=== PATIENT | male | born 1975 | race Caucasian/White ===

== ENCOUNTER 2016-12-06 00:12 | Emergency (ER) | payer SELFPAY ==
[2016-12-06 00:57] LABS: MEAN CORPUSCULAR HEMOGLOBIN 32.9 pg (27.0-33.0); MEAN CORPUSCULAR HGB CONC 34.5 g/dl (32.0-36.5); MEAN CORPUSCULAR VOLUME 95.3 fl (80.0-96.0); RED CELL DISTRIBUTION WIDTH 13.4 % (11.5-14.5); WHITE BLOOD COUNT 5.3 K/mm3 (4.0-10.0)
[2016-12-06 01:09] LABS: ALBUMIN 3.8 GM/DL (3.2-5.2); ALBUMIN/GLOBULIN RATIO 1.06 (1.00-1.93); ALKALINE PHOSPHATASE 81 U/L (45-117); ALT/SGPT 62 U/L (12-78); ANION GAP 10 MEQ/L (8-16); AST/SGOT 63 U/L (15-37); BILIRUBIN,DIRECT 0.2 MG/DL (0.0-0.2); BILIRUBIN,TOTAL 0.6 MG/DL (0.2-1.0); BLOOD UREA NITROGEN 3 MG/DL (7-18); CALCIUM LEVEL 8.4 MG/DL (8.5-10.1); CARBON DIOXIDE LEVEL 27 MEQ/L (21-32); CHLORIDE LEVEL 106 MEQ/L (98-107); CREATININE FOR GFR 0.82 MG/DL (0.70-1.30); GLOMERULAR FILTRATION RATE > 60.0 (>60); GLUCOSE, FASTING 81 MG/DL (70-105); POTASSIUM SERUM 3.3 MEQ/L (3.5-5.1); SODIUM LEVEL 143 MEQ/L (136-145); TOTAL PROTEIN 7.4 GM/DL (6.4-8.2)
[2016-12-06] MEDS ORDERED: ISOVUE-370 76% 100ML VIAL (Q9967) As Ordered ONE (01:31)
[2016-12-06] MEDS ORDERED: diphenhydrAMINE INJ 50MG/ML VIAL (J1200) As Ordered ONE (02:03)
[2016-12-06 02:04] LABS: AMPHETAMINES LEVEL URINE NEGATIVE (NEGATIVE); BENZODIAZEPINES URINE NEGATIVE (NEGATIVE); COCAINE METABOLITE URINE NEGATIVE (NEGATIVE); CONTROL LINE INT CTR LINE PRESENT; METHADONE URINE NEGATIVE (NEGATIVE); OPIATES URINE NEGATIVE (NEGATIVE); TRICYCLIC ANTIDEPRESS URINE NEGATIVE (NEGATIVE)
[2016-12-06] MEDS ORDERED: LORazepam 2 MG/ML VIAL (J2060) As Ordered ONE (02:04)
[2016-12-06] MEDS ORDERED: HALOPERIDOL 5 MG/ML VIAL (J1630) As Ordered ONE (02:04)
--- NOTE | 2016-12-06 03:00 | REPUSA ---
CLINICAL HISTORY: Abdominal pain. TECHNIQUE: Multiple axial, sagittal and coronal CT images were obtained through the abdomen and pelvi s after administration of intravenous contrast material. COMMENTS: The liver is mildly enlarged with decreased attenuation without mass or defect. There is no intra or extrahepatic biliary ductal dilatation. The spleen is normal. The gallbladder is within normal limits . The pancreas is of normal contour and attenuation characteristics. There is no evidence of adrenal mass. Both kidneys demonstrate prompt and equal nephrograms. The kidneys are normal in size, shape and conf iguration. There is no evidence of renal or ureteral mass. No renal or ureteral calculi are identifie d. There is no hydroureter or hydronephrosis. No evidence for appendicitis. There is no bowel wall thickening. No evidence for small or large rossy l obstruction. There is no evidence of abdominal ascites or lymphadenopathy. There is no evidence of intrinsic or extrinsic bladder mass. There is no pelvic ascites or lymphadeno opal. Diffuse thickening of the bladder. Images of the lung bases show no evidence of pleural or parenchymal mass. There are no pleural effusi ons. The bony structures are free of lytic or blastic lesions. Multilevel degenerative changes are seen in volving the thoracolumbar spine. Scattered calcifications are seen involving the aorta and major bran ches compatible with atherosclerosis. IMPRESSION: Fatty liver infiltration. Thickened bladder. Underdistention versus mild cystitis. No acute traumatic pathology. Thank you for your kind referral of this patient.
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
--- NOTE | 2016-12-06 09:27 | ECGEPIP ---
Stationary ECG Study [facility] - ED Test Date: 2016-12-06 Pat Name: SANKET HERNDON Department: Room: - Gender: M [employer]: : 1975 Requested By: NOEL Jones Order Number: [id number] Reading MD: Karen Rizo Measurements Intervals [place] Rate: 95 P: 83 NV: 157 QRS: 73 QRSD: 82 T: 66 QT: 348 QTc: 439 Interpretive Statements SINUS RHYTHM NSTTW ABNORMALITY NO PRIOR FOR COMPARISON Electronically Signed On 12-06-2016 9:27:17 EST by Karen Rizo
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
--- NOTE | 2016-12-06 10:39 | EDDOCDS ---
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 abnormalities.; The bony structures are free of lytic or blastic lesions. Multilevel degenerative changes are seen in; volving the thoracic spine. Scattered calcifications are seen involving the aorta and visualized alda; r branches compatible with atherosclerosis.; No evidence for abnormal enhancement.; IMPRESSION:; Left presternal soft tissue edema and subcutaneous fat stranding.; No evidence of acute thoracic pathology.; Thank you for your kind referral of this patient.; ; ; Outcome: 10:24 Discharge ordered by Provider. br1 10:38 Discharge Assessment: Patient awake, alert and oriented x 3. No cognitive and/or mk4 functional deficits noted. Patient verbalized understanding of disposition instructions. Patient awake and alert. patient administered narcotics - no. The following High Risk Discharge criteria are identified: None. Discharged to home ambulatory. Condition: good Condition: stable. CT Study completed. 10:38 Patient left the ED. mk4 Signatures: Dispatcher [employer] EDMS Edith Ramey, Clin Application Specialist Unit deg [place] Orour[place], Murray De Guzman, Security Aide Jelly Molina-Cee, Clin Application Specialist Unit ml3 John Odell, PHYSIOTHERAPY ASSISTANT PHYSIOTHERAPY ASSISTANT kb5 Noel Mccollum, DO mm11 Marbin Oleary MD MD br1 Nicole Kumar1 Ching Hussein,RN RN aa3 Ondina Srinivasan, RN RN mk4 Sharad,Fariba,SPINNER FRAME SPINNER FRAME ka4 Sharon Hoyos,RN Fernanda Lamar Amber, RN RN af2 Keiko Zuniga, PHYSIOTHERAPY ASSISTANT PHYSIOTHERAPY ASSISTANT cln Willy Saldana, PHYSIOTHERAPY ASSISTANT PHYSIOTHERAPY ASSISTANT jmv Corrections: (The following items were deleted from the chart) 02:24 02:17 General: pt placing blanket over face, pt asked multiple times to pull blanket mlc off of face so he is able to be visualized by staff. pt yelled "fuck this, I'm leaving" and started to attempt to get off of stretcher. pt being uncooperative with staff and yelling. Code 25 called at this time. pt manually held by staff until further helped arrived for staff and pt safety. pt able to be calmed with verbal reassurance. All physical contact by staff removed, pt cooperative. Dr. Mccollum aware. pt resting with eyes closed at this time . mlc MTDD
--- NOTE | 2016-12-08 11:39 | EDDOCDS ---
Physician Documentation [facility] Name: Heather Olivarez Age: 41 yrs Sex: Male : 1975 Arrival Date: 12/06/2016 Time: 00:12 Bed OBSERVATION Private MD: NO PRIMARY PHYSICIAN, . Disposition: 12/06/16 10:24 Discharged to Home/Self Care. Impression: Alcohol use, unspecified with intoxication, Laceration without foreign body of unspecified front wall of thorax without penetration into thoracic cavity. - Condition is Stable. - Discharge Instructions: Alcohol Intoxication, Laceration Care, Adult. - Medication Reconciliation, Local Pharmacy Hours form. - [facility]; When: 2 - 3 days; Reason: Recheck today's complaints. Follow up: [facility]; When: 1 week; Reason: Recheck today's complaints. - Problem is new. - Symptoms have improved. - Notes: You were seen in the ED for a laceration to the chest wall. CT scan showed no penetration into the thoracic cavity. Bloodwork showed alcohol intoxication. You were allowed to sober. Psychiatry was consulted who recommended that as you are having no thoughts of harming self or others you may return home to follow up with the [facility] for primary care and Behavioral Health for recheck mental health evaluation - please call to arrange to be seen. Keep the wound clean and dry with a new dressing daily.
Return to the ED for any fever, worse pain, redness around the wound, shortness of breath, discharge from the wound, depression, thoughts of harming self or any other concerns. Historical: - Allergies: Bees; onions; ibuprofen; - Home Meds: 1. none - PMHx: Asthma; - PSHx: right ear; Carpal Tunnel Repair- Left; - Social history: Smoking status: Patient uses tobacco products, current every day smoker. Patient uses alcohol on a daily basis. street drugs, marijuana, No barriers to communication noted, The patient speaks fluent [place]. - Family history: Not pertinent. - : The pt / caregiver states he / she is not on anticoagulants. Home medication list is obtained from the patient. - Exposure Risk Screening:: None identified. Vital Signs: 12/06 00:21 BP 118 / 83 (auto/); mlc 00:22 Pulse 94 MON; Pulse Ox 97% ; mlc 00:25 BP 130 / 81; Pulse 92; Resp 20; Temp 97.2(O); Pulse Ox 98% on R/A; Weight 64 kg / 141.1 jmv lbs (M); Height 5 ft. 8 in. (172.72 cm) (R); Pain 07/07; 00:30 BP 122 / 87 (auto/); mlc 00:31 Pulse 90 MON; Pulse Ox 97% ; mlc 00:45 BP 125 / 88 (auto/); mlc 00:46 Pulse 89 MON; Pulse Ox 97% ; mlc 01:00 BP 126 / 86 (auto/); mlc 01:01 Pulse 88 MON; Pulse Ox 97% ; mlc 01:15 Pulse 90 MON; Pulse Ox 97% ; mlc 01:15 BP 153 / 67 (auto/); mlc 01:30 BP 107 / 58 (auto/); mlc 01:37 Pulse 87 MON; Pulse Ox 99% ; mlc 01:45 BP 105 / 64 (auto/); mlc 01:46 Pulse 80 MON; Pulse Ox 98% ; mlc 02:00 BP 114 / 68 (auto/); mlc 02:01 Pulse 83 MON; Pulse Ox 99% ; mlc 02:15 BP 113 / 61 (auto/); mlc 02:16 Pulse 86 MON; Pulse Ox 98% ; mlc 02:30 BP 103 / 57 (auto/); mlc 02:31 Pulse 88 MON; Pulse Ox 97% ; mlc 02:56 BP 91 / 53 (auto/); mlc 02:57 Pulse 82 MON; mlc 03:00 BP 91 / 52 (auto/); mlc 03:01 Pulse 81 MON; mlc 03:15 BP 95 / 55 (auto/); mlc 03:16 Pulse 83 MON; mlc 03:30 BP 95 / 53 (auto/); mlc 03:31 Pulse 84 MON; mlc 03:45 BP 97 / 53 (auto/); mlc 03:46 Pulse 86 MON; mlc 04:00 BP 97 / 53 (auto/); mlc 04:01 Pulse 83 MON; Pulse Ox 94% ; mlc 04:15 BP 99 / 53 (auto/); mlc 04:16 Pulse 82 MON; Pulse Ox 94% ; mlc 04:30 BP 101 / 54 (auto/); mlc 04:31 Pulse 82 MON; Pulse Ox 94% ; mlc 10:36 BP 107 / 64; Pulse 72; Resp 16; Temp 97(T); Pulse Ox 97% on R/A; mk4 00:25 Body Mass Index 21.45 (64.00 kg, 172.72 cm) roseannev MDM: 00:28 Chest, 1 View Ordered. EDMS 00:30 Consult PFS/PSA/Finger Waver ordered. mm11 00:30 Consult PFS/PSA/Finger Waver: Patient's case requires discussion with on-call [facility] Psychiatrist ordered. 00:30 PSA/PFS to call Nursing Drilling Field Professional, to enter patient data on [place] if patient mm11 involuntarily admitted or transferred for SI or HI ordered. 00:30 Confirm accurate psychiatric medication list and times of last dosage ordered. mm11 00:30 Detain Pt Until Medically/PFS Cleared ordered. mm11 00:30 IV Saline Lock ordered. mm11 00:30 NS 0.9% 1000 ml IV at bolus once ordered. mm11 00:30 Controller Coal Or Ore/Pulse Ox/q 15 min VS ordered. mm11 00:30 Rhythm Strip to chart ordered. mm11 00:30 Trauma Level 2 Designation ordered. mm11 00:30 Wound Care ordered. mm11 00:30 Acetaminophen Level Ordered. EDMS 00:30 Basic Metabolic Profile Ordered. EDMS 00:30 Complete Blood Count Ordered. EDMS 00:30 Drug Eval Toxicology ED Only Ordered. EDMS 00:30 Ethyl Alcohol (ethanol) Ordered. EDMS 00:30 Liver Profile Ordered. EDMS 00:30 Salicylate Level Ordered. EDMS 00:30 Thyroid Stimulating Hormone Ordered. EDMS 00:30 Type & Screen Ordered. EDMS 00:31 ECG WITH READING ER PHYS+CARDIAG ordered. EDMS 00:31 CT ABD & PELVIS: IV Contrast Only Ordered. EDMS 00:31 CT Chest With Contrast Ordered. EDMS 01:15 Acetaminophen Level Reviewed. mm11 01:15 Basic Metabolic Profile Reviewed. mm11 01:15 Ethyl Alcohol (ethanol) Reviewed. mm11 01:15 Liver Profile Reviewed. mm11 01:15 Complete Blood Count Reviewed. mm11 01:15 Salicylate Level Reviewed. mm11 01:15 Thyroid Stimulating Hormone Reviewed. mm11 02:01 [facility] [place] into [employer] and attached to record. [facility] 02:02 Financial registration complete. [facility] 02:07 Drug Eval Toxicology ED Only Reviewed. mm11 02:07 Type & Screen Reviewed. mm11 04:19 CT ABD & PELVIS: IV Contrast Only Reviewed. mm11 04:19 CT Chest With Contrast Reviewed. mm11 05:16 REGULAR DIET PLASTIC ROMERO+DIET ordered. EDMS 09:58 Consult PFS/PSA/Finger Waver complete. ca 09:58 Consult PFS/PSA/Finger Waver: Patient's case requires discussion with on-call ca Psychiatrist complete. 09:59 PSA/PFS to call Nursing Drilling Field Professional, to enter patient data [place] if patient ca involuntarily admitted or transferred for SI or HI complete. 10:19 ED course: Accepted patient in signout. Patient with superficial laceration anterior br1 chest wall (CT negative). Patient initially reported wound was self inflicted then admitted to lying in effort to protect the individual who inflicted the wound. Pending sobriety and Psych eval. Now sober. Denies depression. Denies SI. Contracts for safety. Denies self inflicting the wound. Dr. Salas consulted of Psychiatry, recommends DC home. Patient agrees with plan.. 13:04 T-Sheet-- Draft Copy was scanned into [employer] and attached to record. gb 12/07 10:07 ECG/EKG was scanned into [employer] and attached to record. gb 10: Trend VS was scanned into [employer] and attached to record. gb 10: Radiology Report was scanned into [employer] and attached to record. gb Administered Medications: 12/06 00:45 Drug: NS 0.9% 1000 ml [sodium chloride 0.9 % intravenous solution] Route: IV; Rate: mlc bolus; Site: left antecubital; 02:23 Follow up: IV Status: Com[place] [facility] [place] 02:08 CANCELLED (Other Intervention Used): -Haloperidol Lactate 5 mg IM once mm11 02:08 CANCELLED (Other Intervention Used): LORazepam 2 mg IM once mm11 02:08 CANCELLED (Other Intervention Used): diphenhydrAMINE 50 mg IM once mm11 Signatures: Dispatcher [employer] EDMS [place] PSA PSA Ilsa Anderson, Reg Reg Ryan Hankins, DO mm11 Marbin Oleary MD MD br1 Ondina Srinivasan RN RN 4 Sharon Hoyos RN RN Fernanda Sweet [facility] The chart was reviewed and I authenticate all verbal orders and agree with the evaluation and treatment provided.Corrections: (The following items were deleted from the chart) 02: 02:02 -Haloperidol Lactate 5 mg IM once ordered. mm11 mm11 02:08 02:02 LORazepam 2 mg IM once ordered. mm11 mm11 02:08 02:02 diphenhydrAMINE 50 mg IM once ordered. mm11 mm11 02:08 02:02 Restraints, Adult: Chemical - Meds as ordered (poses imminent danger of mm11 self-harm). May use manual restraints to ensure safe admin. of meds. Pt. monitoring for min. of 2 hrs per RN policy. ordered. mm11 02: 02:02 Restraints, Adult: Mechanical - 4 points up to 1 hr (poses imminent danger of mm11 interfering with medical interventions). May use manual restraints to secure restraint devices. Pt. monitoring per RN policy. ordered. mm11 Attachments: 02:01 COUNT INCLUDES THE [facility] Payment Agreement [facility] 13:04 T-Sheet-- Draft Copy 12/07 10:07 ECG/EKG Chart Complete MTDD
--- NOTE | 2016-12-08 11:39 | EDDOCDS ---
Physician Documentation [facility] Name: Heather Olivarez Age: 41 yrs Sex: Male : 1975 Arrival Date: 12/06/2016 Time: 00:12 Bed OBSERVATION Private MD: NO PRIMARY PHYSICIAN, . Disposition: 12/06/16 10:24 Discharged to Home/Self Care. Impression: Alcohol use, unspecified with intoxication, Laceration without foreign body of unspecified front wall of thorax without penetration into thoracic cavity. - Condition is Stable. - Discharge Instructions: Alcohol Intoxication, Laceration Care, Adult. - Medication Reconciliation, Local Pharmacy Hours form. - [facility]; When: 2 - 3 days; Reason: Recheck today's complaints. Follow up: [facility]; When: 1 week; Reason: Recheck today's complaints. - Problem is new. - Symptoms have improved. - Notes: You were seen in the ED for a laceration to the chest wall. CT scan showed no penetration into the thoracic cavity. Bloodwork showed alcohol intoxication. You were allowed to sober. Psychiatry was consulted who recommended that as you are having no thoughts of harming self or others you may return home to follow up with the [facility] for primary care and Behavioral Health for recheck mental health evaluation - please call to arrange to be seen. Keep the wound clean and dry with a new dressing daily.
Return to the ED for any fever, worse pain, redness around the wound, shortness of breath, discharge from the wound, depression, thoughts of harming self or any other concerns. Historical: - Allergies: Bees; onions; ibuprofen; - Home Meds: 1. none - PMHx: Asthma; - PSHx: right ear; Carpal Tunnel Repair- Left; - Social history: Smoking status: Patient uses tobacco products, current every day smoker. Patient uses alcohol on a daily basis. street drugs, marijuana, No barriers to communication noted, The patient speaks fluent American. - Family history: Not pertinent. - : The pt / caregiver states he / she is not on anticoagulants. Home medication list is obtained from the patient. - Exposure Risk Screening:: None identified. Vital Signs: 12/06 00:21 BP 118 / 83 (auto/); mlc 00:22 Pulse 94 MON; Pulse Ox 97% ; mlc 00:25 BP 130 / 81; Pulse 92; Resp 20; Temp 97.2(O); Pulse Ox 98% on R/A; Weight 64 kg / 141.1 jmv lbs (M); Height 5 ft. 8 in. (172.72 cm) (R); Pain 07/07; 00:30 BP 122 / 87 (auto/); mlc 00:31 Pulse 90 MON; Pulse Ox 97% ; mlc 00:45 BP 125 / 88 (auto/); mlc 00:46 Pulse 89 MON; Pulse Ox 97% ; mlc 01:00 BP 126 / 86 (auto/); mlc 01:01 Pulse 88 MON; Pulse Ox 97% ; mlc 01:15 Pulse 90 MON; Pulse Ox 97% ; mlc 01:15 BP 153 / 67 (auto/); mlc 01:30 BP 107 / 58 (auto/); mlc 01:37 Pulse 87 MON; Pulse Ox 99% ; mlc 01:45 BP 105 / 64 (auto/); mlc 01:46 Pulse 80 MON; Pulse Ox 98% ; mlc 02:00 BP 114 / 68 (auto/); mlc 02:01 Pulse 83 MON; Pulse Ox 99% ; mlc 02:15 BP 113 / 61 (auto/); mlc 02:16 Pulse 86 MON; Pulse Ox 98% ; mlc 02:30 BP 103 / 57 (auto/); mlc 02:31 Pulse 88 MON; Pulse Ox 97% ; mlc 02:56 BP 91 / 53 (auto/); mlc 02:57 Pulse 82 MON; mlc 03:00 BP 91 / 52 (auto/); mlc 03:01 Pulse 81 MON; mlc 03:15 BP 95 / 55 (auto/); mlc 03:16 Pulse 83 MON; mlc 03:30 BP 95 / 53 (auto/); mlc 03:31 Pulse 84 MON; mlc 03:45 BP 97 / 53 (auto/); mlc 03:46 Pulse 86 MON; mlc 04:00 BP 97 / 53 (auto/); mlc 04:01 Pulse 83 MON; Pulse Ox 94% ; mlc 04:15 BP 99 / 53 (auto/); mlc 04:16 Pulse 82 MON; Pulse Ox 94% ; mlc 04:30 BP 101 / 54 (auto/); mlc 04:31 Pulse 82 MON; Pulse Ox 94% ; mlc 10:36 BP 107 / 64; Pulse 72; Resp 16; Temp 97(T); Pulse Ox 97% on R/A; mk4 00:25 Body Mass Index 21.45 (64.00 kg, 172.72 cm) roseannev MDM: 00:28 Chest, 1 View Ordered. EDMS 00:30 Consult PFS/PSA/Detail Sergeant ordered. mm11 00:30 Consult PFS/PSA/Detail Sergeant: Patient's case requires discussion with on-call [facility] Psychiatrist ordered. 00:30 PSA/PFS to call Nursing Java Integration Developer, to enter [place] data [place] if patient mm11 involuntarily admitted or transferred for SI or HI ordered. 00:30 Confirm accurate psychiatric medication list and times of last dosage ordered. mm11 00:30 Detain Pt Until Medically/PFS Cleared ordered. mm11 00:30 IV Saline Lock ordered. mm11 00:30 NS 0.9% 1000 ml IV at bolus once ordered. mm11 00:30 Dump Grounds Checker/Pulse Ox/q 15 min VS ordered. mm11 00:30 Rhythm Strip to chart ordered. mm11 00:30 Trauma Level 2 Designation ordered. mm11 00:30 Wound Care ordered. mm11 00:30 Acetaminophen Level Ordered. EDMS 00:30 Basic Metabolic Profile Ordered. EDMS 00:30 Complete Blood Count Ordered. EDMS 00:30 Drug Eval Toxicology ED Only Ordered. EDMS 00:30 Ethyl Alcohol (ethanol) Ordered. EDMS 00:30 Liver Profile Ordered. EDMS 00:30 Salicylate Level Ordered. EDMS 00:30 Thyroid Stimulating Hormone Ordered. EDMS 00:30 Type & Screen Ordered. EDMS 00:31 ECG WITH READING ER PHYS+CARDIAG ordered. EDMS 00:31 CT ABD & PELVIS: IV Contrast Only Ordered. EDMS 00:31 CT Chest With Contrast Ordered. EDMS 01:15 Acetaminophen Level Reviewed. mm11 01:15 Basic Metabolic Profile Reviewed. mm11 01:15 Ethyl Alcohol (ethanol) Reviewed. mm11 01:15 Liver Profile Reviewed. mm11 01:15 Complete Blood Count Reviewed. mm11 01:15 Salicylate Level Reviewed. mm11 01:15 Thyroid Stimulating Hormone Reviewed. mm11 02:01 [facility] [place] was scanned into [employer] and attached to record. [facility] 02:02 Financial registration complete. [facility] 02:07 Drug Eval Toxicology ED Only Reviewed. mm11 02:07 Type & Screen Reviewed. mm11 04:19 CT ABD & PELVIS: IV Contrast Only Reviewed. mm11 04:19 CT Chest With Contrast Reviewed. mm11 05:16 REGULAR DIET PLASTIC ROMERO+DIET ordered. EDMS 09:58 Consult PFS/PSA/Detail Sergeant complete. ca 09:58 Consult PFS/PSA/Detail Sergeant: Patient's case requires discussion with on-call ca Psychiatrist complete. 09:59 PSA/PFS to call Nursing Java Integration Developer, to enter [place] data [place] if patient ca involuntarily admitted or transferred for SI or HI complete. 10:19 ED course: Accepted patient in signout. Patient with superficial laceration anterior br1 chest wall (CT negative). Patient initially reported wound was self inflicted then admitted to lying in effort to protect the individual who inflicted the wound. Pending sobriety and Psych eval. Now sober. Denies depression. Denies SI. Contracts for safety. Denies self inflicting the wound. Dr. Salas consulted of Psychiatry, recommends DC home. Patient agrees with plan.. 13:04 T-Sheet-- Draft Copy was scanned into [employer] and attached to record. gb 12/07 10:07 ECG/EKG was scanned into [employer] and attached to record. gb 10: Trend VS was scanned into [employer] and attached to record. gb 10: Radiology Report was scanned into [employer] and attached to record. gb Administered Medications: 12/06 00:45 Drug: NS 0.9% 1000 ml [sodium chloride 0.9 % intravenous solution] Route: IV; Rate: mlc bolus; Site: left antecubital; 02:23 Follow up: IV Status: Completed infusion [facility] [place] 02:08 CANCELLED (Other Intervention Used): -Haloperidol Lactate 5 mg IM once mm11 02:08 CANCELLED (Other Intervention Used): LORazepam 2 mg IM once mm11 02:08 CANCELLED (Other Intervention Used): diphenhydrAMINE 50 mg IM once mm11 Signatures: Dispatcher [employer] EDMS [place] PSA PSA Ilsa Anderson, Reg Reg Ryan Hankins, DO mm11 Marbin Oleary MD MD br1 Ondina Srinivasan RN RN 4 Sharon Hoyos RN RN Fernanda Sweet [facility] The chart was reviewed and I authenticate all verbal orders and agree with the evaluation and treatment provided.Corrections: (The following items were deleted from the chart) 02: 02:02 -Haloperidol Lactate 5 mg IM once ordered. mm11 mm11 02:08 02:02 LORazepam 2 mg IM once ordered. mm11 mm11 02:08 02:02 diphenhydrAMINE 50 mg IM once ordered. mm11 mm11 02:08 02:02 Restraints, Adult: Chemical - Meds as ordered (poses imminent danger of mm11 self-harm). May use manual restraints to ensure safe admin. of meds. Pt. monitoring for min. of 2 hrs per RN policy. ordered. mm11 02: 02:02 Restraints, Adult: Mechanical - 4 points up to 1 hr (poses imminent danger of mm11 interfering with medical interventions). May use manual restraints to secure restraint devices. Pt. monitoring per RN policy. ordered. mm11 Attachments: 02:01 [facility] Payment Agreement [facility] 13:04 T-Sheet-- Draft Copy 12/07 10:07 ECG/EKG Chart Complete MTDD
--- NOTE | 2016-12-08 11:39 | EDDOCDS ---
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 or defect. There is no i; ntra or extrahepatic biliary ductal dilatation. The spleen is unremarkable. The visualized pancreas i; s of normal contour and attenuation characteristics. There is no evidence of adrenal mass. The visual; ized portions of the kidneys present no abnormalities.; The bony structures are free of lytic or blastic lesions. Multilevel degenerative changes are seen in; volving the thoracic spine. Scattered calcifications are seen involving the aorta and visualized alda; r branches compatible with atherosclerosis.; No evidence for abnormal enhancement.; IMPRESSION:; Left presternal soft tissue edema and subcutaneous fat stranding.; No evidence of acute thoracic pathology.; Thank you for your kind referral of this patient.; ; ; Outcome: 12/06 10:24 Discharge ordered by Provider. br1 10:38 Discharge Assessment: Patient awake, alert and oriented x 3. No cognitive and/or mk4 functional deficits noted. Patient verbalized understanding of disposition instructions. Patient awake and alert. patient administered narcotics - no. The following High Risk Discharge criteria are identified: None. Discharged to home ambulatory. Condition: good Condition: stable. CT Study completed. 10:38 Patient left the ED. 4 Signatures: Dispatcher [employer] EDMS Edith Ramey, Business Broker Unit deg Sharad, [place], PSA PSA ca Barnhardt, Ilsa, Reg Reg gb Mir, Murray, Security Aide Securpjf Bernie Carney, Business Broker Unit ml3 John Odell, ARMHOLE SEWER ARMHOLE SEWER kb5 Noel Mccollum, DO mm11 Marbin Oleary MD MD br1 Nicole Kumar1 Ching Hussein,RN RN aa3 Ondina Srinivasan RN RN mk4 Fariba Orourke,RN INTERNAL MEDICINE RN INTERNAL MEDICINE ka4 Sharon Hoyos,RN RN Fernanda Sweet Amber,RN RN af2 Keiko Zuniga, ARMHOLE SEWER ARMHOLE SEWER cln Willy Saldana, ARMHOLE SEWER ARMHOLE SEWER jmv Corrections: (The following items were deleted from the chart) 02:24 02:17 General: pt placing blanket over face, pt asked multiple times to pull blanket mlc off of face so he is able to be visualized by staff. pt yelled "fuck this, I'm leaving" and started to attempt to get off of stretcher. pt being uncooperative with staff and yelling. Code 25 called at this time. pt manually held by staff until further helped arrived for staff and pt safety. pt able to be calmed with verbal reassurance. All physical contact by staff removed, pt cooperative. Dr. Mccollum aware. pt resting with eyes closed at this time . mlc Chart Complete MTDD
== END 2016-12-06 10:38 | disposition home or self-care (01) ==
LOC: M ED 00:12
DX: S21.139A Puncture wound without foreign body of unspecified front wall of thorax without penetration into thoracic cavity, initial encounter (principal); F10.129 Alcohol abuse with intoxication, unspecified; J45.909 Unspecified asthma, uncomplicated; F17.210 Nicotine dependence, cigarettes, uncomplicated; Z88.6 Allergy status to analgesic agent; Z91.030 Bee allergy status; Z91.018 Allergy to other foods; X99.1XXA Assault by knife, initial encounter; Y92.019 Unspecified place in single-family (private) house as the place of occurrence of the external cause; Y93.89 Activity, other specified; Y99.9 Unspecified external cause status
CPT/HCPCS: 36415; 71010; 71260; 74177; 80048; 80076; 80306; 84443; 85027; 86850; 86900; 86901; 93005; 93041; 96360; 96361; 99285; G0480; J1200; J1630; J2060; Q9967

== ENCOUNTER 2017-07-05 20:12 | Emergency (ER) | payer SELFPAY ==
[~2017-07-05] VITALS: Ht 172.7 cm; Wt 68.2 kg
[2017-07-05] MEDS ORDERED: diphenhydrAMINE INJ 50MG/ML VIAL (J1200) IM ONE (21:00)
[2017-07-05] MEDS ORDERED: HALOPERIDOL 5 MG/ML VIAL (J1630) IM ONE (21:00)
[2017-07-05] MEDS ORDERED: LORazepam 2 MG/ML VIAL (J2060) IM ONE (21:00)
[2017-07-06 06:03] VITALS: BP 107/81
--- NOTE | 2017-07-06 08:19 | REPUSA ---
HISTORY: Trauma. COMPARISON: No relevant comparison is available at the time of interpretation. CT FACE MANDIBLE without contrast: Total DLP 1171.7 mGy*cm Soft Tissues: Right periorbital soft tissue laceration and subcutaneous hematoma. Nasal Bone: There is a nondisplaced fracture of the left nasal bone. Sinuses and mastoids: Mild mucosal thickening without traumatic fluid levels. Orbits: No retrobulbar trauma. Maxilla: Intact. Mandible: Intact. IMPRESSION: 1. Left nasal fracture. 2. Right periorbital soft tissue laceration.
--- NOTE | 2017-07-06 08:19 | REPUSA ---
HISTORY: Trauma. COMPARISON: No relevant comparison is available at the time of interpretation. CT C-SPINE with reformations: Total DLP 1171.7 mGy*cm C1 through T1: Neural rings intact without fracture. Dens intact. Central canal: Cervical spondylosis which produces chronic narrowing of the central canal and neural foramina. Alignment (by reformations): No significant listhesis. C4-5: Bilateral neural foraminal stenosis due to uncovertebral osteophytes. C5-6: Bilateral neural foraminal stenosis due to uncovertebral osteophytes. C6-7: Bilateral neural foraminal stenosis due to uncovertebral osteophytes. IMPRESSION: Degenerative spondylosis which produces chronic neural foraminal stenosis at C4-5, C5-6 a nd C6-7, without acute fracture.
--- NOTE | 2017-07-06 08:19 | REPUSA ---
CLINICAL HISTORY: Head trauma COMPARISON: No study for comparison is available at the time of interpretation. TECHNIQUE: Head CT without contrast. Total DLP 1171.7 mGy*cm Soft tissue: Right periorbital laceration and subcutaneous hematoma. Brain: No intracranial hemorrhage or parenchymal edema. Calvarium: No depressed fractures. Sinuses (partially visualized): No hemorrhage fluid levels. IMPRESSION: 1. Right periorbital soft tissue injury. 2. No intracranial hemorrhage or fracture.
== END 2017-07-06 07:52 | disposition home or self-care (01) ==
LOC: EDBD 20:12 → M ED 20:12
DX: S09.90XA Unspecified injury of head, initial encounter (principal); S01.111A Laceration without foreign body of right eyelid and periocular area, initial encounter; S01.81XA Laceration without foreign body of other part of head, initial encounter; S02.2XXA Fracture of nasal bones, initial encounter for closed fracture; F10.120 Alcohol abuse with intoxication, uncomplicated; F12.10 Cannabis abuse, uncomplicated; Y04.8XXA Assault by other bodily force, initial encounter; Y92.89 Other specified places as the place of occurrence of the external cause; Y93.89 Activity, other specified; Y99.8 Other external cause status; F17.200 Nicotine dependence, unspecified, uncomplicated
CPT/HCPCS: 12011; 12051; 70450; 70486; 72125; 96372; 99285; J1200; J1630; J2060

== ENCOUNTER → 2019-01-17 | Outpatient (REF) | payer OTHER ==
[2019-01-21 08:51] LABS: F048-IGE ONIONS 0.17 kU/L (Class 0/I)
== END ==
LOC: M LAB REF 12:44
PROVIDERS: ATTEND Surgery
DX: Z91.018 Allergy to other foods (principal)

== ENCOUNTER 2020-02-18 06:19 | Emergency (ER) | payer OTHER ==
[~2020-02-18] VITALS: Ht 172.7 cm; Wt 73.6 kg
[2020-02-18] MEDS ORDERED: KETOROLAC 60 MG/2 ML VIAL (J1885) IM ONE (07:45)
[2020-02-18] MEDS ORDERED: ACETAMINOPHEN SUSP DYE FREE 160 MG/5 ML UDC PO ONE (07:45)
--- NOTE | 2020-02-18 08:23 | REP ---
Clinical: Right wrist pain Technique: AP, lateral, bilateral oblique views right wrist . Findings: The carpal bones, surrounding osseous structures, soft tissues, and joint spaces are normal. There is no evidence for acute fracture or dislocation. No subcutaneous emphysema or radiodense foreign body. Impression: Normal wrist series. No acute fracture or dislocation. If the patient remains symptomatic consider reevaluation and with scaphoid view if necessary. Electronically Signed by Satish Avalos MD 02/18/2020 08:14 A
--- NOTE | 2020-02-18 08:24 | REP ---
Clinical: Right knee pain Technique: AP, lateral, bilateral oblique and sunrise views right knee . Findings: The osseous structures and joint spaces are intact and normal. There is no evidence for acute fracture or dislocation. No joint effusion is appreciated. Surrounding soft tissues are unremarkable. No subcutaneous emphysema or radiodense foreign body. Impression: Normal age-appropriate examination. No acute fracture or dislocation. Electronically Signed by Satish Avalos MD 02/18/2020 08:15 A
[2020-02-18 08:37] VITALS: BP 120/70
== END 2020-02-18 08:39 | disposition home or self-care (01) ==
LOC: M ED 06:19
DX: M25.561 Pain in right knee (principal); G89.29 Other chronic pain; M77.9 Enthesopathy, unspecified; F17.200 Nicotine dependence, unspecified, uncomplicated; Z91.018 Allergy to other foods
CPT/HCPCS: 73110; 73564; 96372; 99283; J1885

== ENCOUNTER 2021-03-11 00:55 | Emergency (ER) | payer OTHER ==
[~2021-03-11] VITALS: Ht 172.7 cm; Wt 64.5 kg
[~2021-03-11 00:55] MED LIST: RALTEGRAVIR 400 MG TAB (ISENTRESS) PO SCH; TRUVADA 200MG/300MG TABLET PO SCH
[2021-03-11 03:44] LABS: BASO # 0.1 10^3/uL (0.0-0.2); BASO % 0.8 % (0.0-1.0); EOS # 0.2 10^3/uL (0.0-0.5); EOS % 3.4 % (0.0-3.0); HEMATOCRIT 42.2 % (42.0-52.0); HEMOGLOBIN 14.2 g/dl (13.5-17.5); LYMPH # 2.4 10^3/uL (1.5-5.0); LYMPH % 40.7 % (24.0-44.0); MEAN CORPUSCULAR HEMOGLOBIN 32.3 pg (27.0-33.0); MEAN CORPUSCULAR HGB CONC 33.6 g/dl (32.0-36.5); MEAN CORPUSCULAR VOLUME 96.1 fl (80.0-96.0); MONO # 0.7 10^3/uL (0.0-0.8); MONO % 11.2 % (2.0-8.0); NEUTROPHILS # 2.6 10^3/uL (1.5-8.5); NEUTROPHILS % 43.6 % (36.0-66.0); PLATELET COUNT, AUTOMATED 174 10^3/uL (150-450); RED BLOOD COUNT 4.39 10^6/uL (4.30-6.10); WHITE BLOOD COUNT 5.9 10^3/uL (4.0-10.0)
[2021-03-11 04:11] LABS: ALBUMIN 3.7 GM/DL (3.2-5.2); ALT/SGPT 132 U/L (12-78); BILIRUBIN,TOTAL 0.6 MG/DL (0.2-1.0); BLOOD UREA NITROGEN 9 MG/DL (7-18); CALCIUM LEVEL 8.3 MG/DL (8.5-10.1); CARBON DIOXIDE LEVEL 27 MEQ/L (21-32); CHLORIDE LEVEL 105 MEQ/L (98-107); CREATININE FOR GFR 0.85 MG/DL (0.70-1.30); GLOMERULAR FILTRATION RATE > 60.0 (>60); GLUCOSE, FASTING 86 MG/DL (70-100); POTASSIUM SERUM 4.1 MEQ/L (3.5-5.1); SODIUM LEVEL 141 MEQ/L (136-145); TOTAL PROTEIN 6.9 GM/DL (6.4-8.2)
[2021-03-11] MEDS ORDERED: BOOSTRIX/ADACEL VACCINE (DIPHTH/PERTUSS/ACELL/TETANUS) 0.5ML SYR IM ONE (05:50)
[2021-03-11] MEDS ORDERED: EXPOSURE KIT-ADULT 7 DAY SUPPLY PO ONE (05:50)
[2021-03-11] MEDS ORDERED: HEPATITIS B VACCINE 10 MCG/0.5 ML SYRINGE (FOR ALL OTHER PTS) IM ONE (05:50)
[2021-03-11] MEDS ORDERED: HEPATITIS B IMMUNE GLOBULIN 5ML INJ (J1571) IM ONE (05:50)
[2021-03-11] MEDS ORDERED: RALT40TA PO (05:58)
[2021-03-11] MEDS ORDERED: TRUVTAB PO (05:58)
[2021-03-11] MEDS ORDERED: TRUVADA 200MG/300MG TABLET PO ONE (06:00)
[2021-03-11] MEDS ORDERED: RALTEGRAVIR 400 MG TAB (ISENTRESS) PO ONE (06:00)
[2021-03-11 07:12] VITALS: BP 130/76
[2021-03-11 09:46] LABS: HEPATITIS B SURFACE ANTIBODY NEGATIVE (POSITIVE)
[2021-03-11 09:56] LABS: HEPATITIS B SURFACE ANTIGEN NEGATIVE (NEGATIVE)
[2021-03-11 10:23] LABS: HEPATITIS C VIRUS ABY INDEX < 0.0 INDEX (<0.8)
[2021-03-11 10:25] LABS: HIV 1&2 SCREEN CENTAUR NEGATIVE (NEGATIVE)
== END 2021-03-11 07:13 | disposition home or self-care (01) ==
LOC: M ED 00:55
DX: S41.142A Puncture wound with foreign body of left upper arm, initial encounter (principal); W46.1XXA Contact with contaminated hypodermic needle, initial encounter; T24.202A Burn of second degree of unspecified site of left lower limb, except ankle and foot, initial encounter; T24.201A Burn of second degree of unspecified site of right lower limb, except ankle and foot, initial encounter; T31.0 Burns involving less than 10% of body surface; Y92.9 Unspecified place or not applicable; Y93.9 Activity, unspecified; Y99.9 Unspecified external cause status; F17.200 Nicotine dependence, unspecified, uncomplicated; F19.10 Other psychoactive substance abuse, uncomplicated; Z91.018 Allergy to other foods

== ENCOUNTER 2021-05-08 20:32 | Emergency (ER) | payer OTHER ==
[~2021-05-08] VITALS: Ht 172.7 cm; Wt 75.9 kg
[~2021-05-08 20:32] MED LIST changes: +EMTR1TAB16 PO; +RALT40TA PO; -RALTEGRAVIR 400 MG TAB (ISENTRESS) PO SCH; -TRUVADA 200MG/300MG TABLET PO SCH
[2021-05-08] MEDS ORDERED: MORPHINE 4 MG/ML 1ML VIAL/SYRINGE (J2270) IV ONE ×2 (21:45→22:30)
[2021-05-08 22:02] LABS: BASO # 0.1 10^3/uL (0.0-0.2); EOS # 0.3 10^3/uL (0.0-0.5); EOS % 3.8 % (0.0-3.0); LYMPH # 2.6 10^3/uL (1.5-5.0); LYMPH % 36.7 % (24.0-44.0); MEAN CORPUSCULAR HEMOGLOBIN 32.5 pg (27.0-33.0); MEAN CORPUSCULAR HGB CONC 34.1 g/dl (32.0-36.5); MEAN CORPUSCULAR VOLUME 95.4 fl (80.0-96.0); MONO # 0.8 10^3/uL (0.0-0.8); MONO % 11.3 % (2.0-8.0); NEUTROPHILS # 3.3 10^3/uL (1.5-8.5); NEUTROPHILS % 47.1 % (36.0-66.0); PLATELET COUNT, AUTOMATED 301 10^3/uL (150-450); RED BLOOD COUNT 4.61 10^6/uL (4.30-6.10); WHITE BLOOD COUNT 7.1 10^3/uL (4.0-10.0)
[2021-05-08 22:27] LABS: ALBUMIN 3.7 GM/DL (3.2-5.2); ALT/SGPT 59 U/L (12-78); BILIRUBIN,DIRECT 0.1 MG/DL (0.0-0.2); BILIRUBIN,TOTAL 0.3 MG/DL (0.2-1.0); BLOOD UREA NITROGEN 3 MG/DL (7-18); CALCIUM LEVEL 8.9 MG/DL (8.5-10.1); CARBON DIOXIDE LEVEL 28 MEQ/L (21-32); CHLORIDE LEVEL 110 MEQ/L (98-107); CREATININE FOR GFR 0.68 MG/DL (0.70-1.30); GLOMERULAR FILTRATION RATE > 60.0 (>60); GLUCOSE, FASTING 77 MG/DL (70-100); POTASSIUM SERUM 3.9 MEQ/L (3.5-5.1); SODIUM LEVEL 144 MEQ/L (136-145); TOTAL PROTEIN 7.7 GM/DL (6.4-8.2)
[2021-05-08 23:45] VITALS: BP 102/62
[2021-05-08] MEDS ORDERED: OXYCODONE/APAP 5MG/325MG(BULK FOR ED) 1 TABLET PO ONE (23:45)
== END 2021-05-09 00:26 | disposition home or self-care (01) ==
LOC: M ED 20:32
DX: L97.919 Non-pressure chronic ulcer of unspecified part of right lower leg with unspecified severity (principal); L97.929 Non-pressure chronic ulcer of unspecified part of left lower leg with unspecified severity; F10.11 Alcohol abuse, in remission; F17.210 Nicotine dependence, cigarettes, uncomplicated; Z79.899 Other long term (current) drug therapy; Z91.018 Allergy to other foods
CPT/HCPCS: 80048; 80076; 83605; 85025; 87040; 87070; 87077; 87186; 87205; 96374; 96376; 99284; J2270

== ENCOUNTER 2021-05-12 03:14 | Emergency (ER) | payer OTHER ==
[~2021-05-12] VITALS: Ht 172.7 cm; Wt 75.9 kg
[2021-05-12] MEDS ORDERED: BACITRACIN OINTMENT 30GM TUBE TOP ONE (07:05)
[2021-05-12] MEDS ORDERED: HYDR-3713 PO (07:26)
[2021-05-12 07:50] VITALS: BP 88/48
== END 2021-05-12 08:00 | disposition home or self-care (01) ==
LOC: M ED 03:14
DX: Z48.00 Encounter for change or removal of nonsurgical wound dressing (principal); L97.909 Non-pressure chronic ulcer of unspecified part of unspecified lower leg with unspecified severity; I10 Essential (primary) hypertension; F17.200 Nicotine dependence, unspecified, uncomplicated; Z79.899 Other long term (current) drug therapy; Z91.018 Allergy to other foods

== ENCOUNTER 2021-05-15 00:16 | Emergency (ER) | payer OTHER ==
[~2021-05-15] VITALS: Ht 177.8 cm; Wt 74.1 kg
[~2021-05-15 00:16] MED LIST changes: +HYDR-3713 PO
--- NOTE | 2021-05-15 05:20 | REPVR ---
PROCEDURE INFORMATION: Exam: US Duplex Lower Extremity Veins, Bilateral Exam date and time: 05/15/2021 3:09 AM Age: 46 years old Clinical indication: Other: Pain in calves where patient has open wounds; Additional info: Leg pain R/O dvt TECHNIQUE: Imaging protocol: Real-time duplex ultrasound of the extremities with 2-D nj scale, color Doppler flow and spectral waveform analysis with image documentation. Complete exam focused on the bilateral lower extremity veins. COMPARISON: CR Knee, complete 02/18/2020 6:56 AM FINDINGS: Right deep veins: Unremarkable. The common femoral, femoral, proximal profunda femoral and popliteal veins are patent without thrombus. Normal Doppler waveforms. Normal compressibility and/or augmentation response. Right superficial veins: Saphenofemoral junction is patent without thrombus. Left deep veins: Unremarkable. The common femoral, femoral, proximal profunda femoral and popliteal veins are patent without thrombus. Normal Doppler waveforms. Normal compressibility and/or augmentation response. Left superficial veins: Saphenofemoral junction is patent without thrombus. Infrapopliteal veins could not be evaluated due to the presence of bandages, patient noncooperation and pain. Soft tissues: Unremarkable. IMPRESSION: No evidence of right or left lower extremity deep vein thrombosis to the level of the popliteal veins. Infrapopliteal veins were not evaluated on this exam. Electronically signed by: Bill Mai On 05/15/2021 05:20:16 AM
[2021-05-15] MEDS ORDERED: VANCOMYCIN HCL 1,500 MG in NS 250 ML IV ONE (06:30)
[2021-05-15 06:49] LABS: HEMATOCRIT 38.1 % (42.0-52.0); HEMOGLOBIN 13.4 g/dl (13.5-17.5); MEAN CORPUSCULAR HEMOGLOBIN 33.8 pg (27.0-33.0); MEAN CORPUSCULAR HGB CONC 35.2 g/dl (32.0-36.5); PLATELET COUNT, AUTOMATED 291 10^3/uL (150-450); RED BLOOD COUNT 3.97 10^6/uL (4.30-6.10); WHITE BLOOD COUNT 6.7 10^3/uL (4.0-10.0)
[2021-05-15] MEDS ORDERED: VANCOMYCIN HCL 750 MG, VIAL MATE ADAPTER 1 EACH in NS 250 ML IV ONE ×2 (07:00→08:00)
[2021-05-15] MEDS ORDERED: KETOROLAC TROMETHAMINE 10 MG TAB PO ONE (07:20)
[2021-05-15 07:54] LABS: ERYTHROCYTE SEDIMENTATION RATE 11 mm/hr (0-15)
[2021-05-15 08:10] LABS: ATYPICAL LYMPH 5 % (0-5); BASOPHILS 2 % (0-1); EOSINOPHILS 1 % (0-3); LYMPHOCYTES 39 % (16-44); MONOCYTES 9 % (0-5); NEUTROPHILS 44 % (28-66); PLATELET ESTIMATE NORMAL (NORMAL)
[2021-05-15 10:12] VITALS: BP 117/43
== END 2021-05-15 10:20 | disposition home or self-care (01) ==
LOC: M ED 00:16
DX: S81.801D Unspecified open wound, right lower leg, subsequent encounter (principal); S81.802D Unspecified open wound, left lower leg, subsequent encounter; L97.219 Non-pressure chronic ulcer of right calf with unspecified severity; L97.229 Non-pressure chronic ulcer of left calf with unspecified severity; X16.XXXD Contact with hot heating appliances, radiators and pipes, subsequent encounter; Y92.9 Unspecified place or not applicable; Y93.9 Activity, unspecified; Y99.9 Unspecified external cause status; F17.200 Nicotine dependence, unspecified, uncomplicated; Z79.899 Other long term (current) drug therapy; Z91.018 Allergy to other foods
CPT/HCPCS: 36415; 80047; 83605; 85025; 85652; 86140; 87040; 93970; 96365; 96376; 99284; J3370

== ENCOUNTER 2021-05-24 14:22 | Emergency (ER) | payer OTHER ==
[~2021-05-24] VITALS: Ht 172.7 cm; Wt 74.1 kg
[2021-05-24 14:41] VITALS: BP 120/65
== END 2021-05-24 15:40 | disposition left against medical advice (07) ==
LOC: M ED 14:22
DX: Z53.21 Procedure and treatment not carried out due to patient leaving prior to being seen by health care provider (principal)

== ENCOUNTER 2022-04-20 02:13 | Emergency (ER) | payer OTHER ==
[~2022-04-20] VITALS: Ht 175.3 cm; Wt 72.7 kg
[2022-04-20 02:15] VITALS: BP 96/61
== END 2022-04-20 03:06 | disposition left against medical advice (07) ==
LOC: M ED 02:13
DX: Z53.21 Procedure and treatment not carried out due to patient leaving prior to being seen by health care provider (principal)

== ENCOUNTER 2022-05-08 05:02 | Emergency (ER) | payer OTHER ==
[~2022-05-08] VITALS: Ht 172.7 cm; Wt 57.9 kg
[2022-05-08] MEDS ORDERED: LORazepam 2 MG/ML VIAL As Ordered ONE (05:13)
[2022-05-08] MEDS ORDERED: LORazepam 2 MG/ML VIAL IV STA (05:14)
[2022-05-08] MEDS ORDERED: NS 1,000 ML IV ONE (05:15)
[2022-05-08] MEDS ORDERED: ISOVUE-370 76% 100ML VIAL As Ordered ONE (05:19)
[2022-05-08] MEDS ORDERED: ROCURONIUM BROMIDE 50 MG/5 ML VIAL IV ONE ×2 (05:30→06:55)
[2022-05-08] MEDS ORDERED: propofoL 1,000 MG in IV 1 EA IV SCH (05:30)
[2022-05-08] MEDS ORDERED: ETOMIDATE INJ 20MG/10ML VIAL IV ONE (05:30)
[2022-05-08 05:32] LABS: BASO # 0.1 10^3/uL (0.0-0.2); BASO % 0.7 % (0.0-1.0); EOS # 0.3 10^3/uL (0.0-0.5); HEMATOCRIT 38.3 % (42.0-52.0); HEMOGLOBIN 13.6 g/dl (13.5-17.5); LYMPH # 2.5 10^3/uL (1.5-5.0); LYMPH % 27.9 % (24.0-44.0); MEAN CORPUSCULAR HEMOGLOBIN 32.9 pg (27.0-33.0); MEAN CORPUSCULAR HGB CONC 35.5 g/dl (32.0-36.5); MEAN CORPUSCULAR VOLUME 92.7 fl (80.0-96.0); MONO # 0.9 10^3/uL (0.0-0.8); MONO % 9.8 % (2.0-8.0); NEUTROPHILS # 5.3 10^3/uL (1.5-8.5); NEUTROPHILS % 58.2 % (36.0-66.0); PLATELET COUNT, AUTOMATED 222 10^3/uL (150-450); RED BLOOD COUNT 4.13 10^6/uL (4.30-6.10); WHITE BLOOD COUNT 9.1 10^3/uL (4.0-10.0)
[2022-05-08 05:44] LABS: INR 0.93; PROTHROMBIN TIME 12.9 SECONDS (12.7-14.5)
[2022-05-08 05:46] LABS: PARTIAL THROMBOPLASTIN TIME 51.3 SECONDS (25.9-37.0)
[2022-05-08 05:54] LABS: CK-MB VALUE MASS 3.3 NG/ML (<3.6); MB/CK RELATIVE INDEX 1.53 (< OR =4)
[2022-05-08 06:01] LABS: ALBUMIN 3.3 GM/DL (3.2-5.2); ALT/SGPT 56 U/L (12-78); AMYLASE 59 U/L (25-115); BILIRUBIN,DIRECT 0.2 MG/DL (0.0-0.2); BILIRUBIN,TOTAL 0.8 MG/DL (0.2-1.0); ETHYL ALCOHOL (ETHANOL) 0.348 % (0.000-0.010); LIPASE 200 U/L (73-393); TOTAL PROTEIN 7.6 GM/DL (6.4-8.2)
[2022-05-08 06:12] LABS: ABG BASE EXCESS -4.7 (-2.0-2.0); ABG HCO3 18.5 MEQ/L (22.0-26.0); ABG O2 SATURATION 99.7 % (95.0-99.0); ABG PARTIAL PRESSURE CO2 29.1 mmHg (35.0-45.0); ABG PARTIAL PRESSURE O2 370.9 mmHg (75.0-100.0); ABG STANDARD HCO3 20.6 MEQ/L (22.0-26.0); ABG TOTAL CO2 19.4 MEQ/L (22.0-29.0); ABG pH (ARTERIAL) 7.422 UNITS (7.350-7.450)
[2022-05-08 06:17] LABS: BLOOD UREA NITROGEN 5 MG/DL (7-18); CALCIUM LEVEL 8.9 MG/DL (8.5-10.1); CARBON DIOXIDE LEVEL 24 MEQ/L (21-32); CHLORIDE LEVEL 101 MEQ/L (98-107); CREATININE FOR GFR 1.06 MG/DL (0.70-1.30); GLOMERULAR FILTRATION RATE > 60.0 (>60); GLUCOSE, FASTING 99 MG/DL (70-100); POTASSIUM SERUM 3.2 MEQ/L (3.5-5.1); SODIUM LEVEL 138 MEQ/L (136-145)
[2022-05-08 06:17] LABS: APPEARANCE, URINE HAZY (CLEAR); BACTERIA, URINE AUTO 1+ (NEGATIVE); BILIRUBIN, URINE AUTO NEGATIVE (NEGATIVE); BLOOD, URINE BLOOD 3+ (NEGATIVE); COLOR, URINE YELLOW (YELLOW); GLUCOSE, URINE (UA) AUTO NEGATIVE (NEGATIVE); KETONE, URINE AUTO NEGATIVE (NEGATIVE); LEUKOCYTE ESTERASE, URINE AUTO 3+ (NEGATIVE); MUCUS, URINE SMALL (NEGATIVE); NITRITE, URINE AUTO NEGATIVE (NEGATIVE); PROTEIN, URINE AUTO 1+ mg/dL (NEGATIVE); RBC, URINE AUTO 54 /HPF (0-3); SPECIFIC GRAVITY URINE AUTO 1.012 (1.002-1.035); SQUAMOUS EPITHELIAL CELL UR AU 1 /HPF (0-6); UROBILINOGEN, URINE AUTO 0.2 mg/dL (0.0-2.0); WBC, URINE AUTO 70 /HPF (0-3)
[2022-05-08 06:41] LABS: AMPHETAMINES LEVEL URINE NEGATIVE (NEGATIVE); BARBITURATES URINE NEGATIVE (NEGATIVE); BENZODIAZEPINES URINE NEGATIVE (NEGATIVE); CANNABINOIDS URINE POSITIVE (NEGATIVE); COCAINE METABOLITE URINE NEGATIVE (NEGATIVE); METHADONE URINE NEGATIVE (NEGATIVE); OPIATES URINE NEGATIVE (NEGATIVE); PHENCYCLIDINE URINE NEGATIVE (NEGATIVE)
[2022-05-08] MEDS ORDERED: REFRIGERATOR IV KEYS XX PRN (06:55)
[2022-05-08] MEDS ORDERED: MIDAZOLAM INJ 2MG/2ML VIAL (J2250 PER 1MG) IV ONE (06:55)
[2022-05-08] MEDS ORDERED: MIDAZOLAM HCL 100 MG in D5W 80 ML IV SCH (07:00)
[2022-05-08] MEDS ORDERED: ceFAZolin SOD 2 GM in IV 1 EA IV ONE (07:25)
[2022-05-08] MEDS ORDERED: TETANUS/DIPHTHERIA TOX ADSORB ADULT 0.5ML SYR/VIAL IM ONE (07:25)
[2022-05-08 08:45] VITALS: BP 125/78
[2022-05-08] MEDS ORDERED: fentaNYL 100 MCG/2 ML INJECTION As Ordered ONE (08:45)
[2022-05-08] MEDS ORDERED: fentaNYL 100 MCG/2 ML INJECTION IV ONE (08:50)
== END 2022-05-08 08:54 | disposition short-term general hospital (02) ==
LOC: M ED 05:02 → EDBD 05:02 → M ED 08:54
DX: S61.212A Laceration without foreign body of right middle finger without damage to nail, initial encounter (principal); S61.214A Laceration without foreign body of right ring finger without damage to nail, initial encounter; S11.83XA Puncture wound without foreign body of other specified part of neck, initial encounter; S02.831A Fracture of medial orbital wall, right side, initial encounter for closed fracture; S02.31XA Fracture of orbital floor, right side, initial encounter for closed fracture; S02.2XXB Fracture of nasal bones, initial encounter for open fracture; S21.332A Puncture wound without foreign body of left front wall of thorax with penetration into thoracic cavity, initial encounter; S27.331A Laceration of lung, unilateral, initial encounter; S27.0XXA Traumatic pneumothorax, initial encounter; X99.9XXA Assault by unspecified sharp object, initial encounter; Y92.410 Unspecified street and highway as the place of occurrence of the external cause; F10.129 Alcohol abuse with intoxication, unspecified; Z91.018 Allergy to other foods
CPT/HCPCS: 31500; 36556; 36600; 51702; 70450; 70486; 71045; 71260; 72125; 74177; 80048; 80076; 80307; 81001; 82077; 82150; 82550; 82553; 82803; 83605; 83690; 85025; 85610; 85730; 86850; 86900; 86901; 87486; 87581; 87633; 87798; 90471; 90714; 93041; 94760; 96361; 96365; 96375; 99291; 99292; J0690; J2060; J2250; Q9967

== ENCOUNTER 2022-05-25 02:12 | Emergency (ER) | payer OTHER ==
[~2022-05-25] VITALS: Ht 172.7 cm; Wt 66.0 kg
[2022-05-25] MEDS ORDERED: ISOVUE-370 76% 100ML VIAL As Ordered ONE (03:43)
[2022-05-25 03:58] VITALS: BP 143/79
[2022-05-25 04:20] LABS: BASO # 0.2 10^3/uL (0.0-0.2); BASO % 1.9 % (0.0-1.0); EOS # 2.8 10^3/uL (0.0-0.5); HEMOGLOBIN 11.3 g/dl (13.5-17.5); LYMPH # 2.1 10^3/uL (1.5-5.0); LYMPH % 18.7 % (24.0-44.0); MEAN CORPUSCULAR HEMOGLOBIN 31.8 pg (27.0-33.0); MEAN CORPUSCULAR HGB CONC 33.2 g/dl (32.0-36.5); MEAN CORPUSCULAR VOLUME 95.8 fl (80.0-96.0); MONO % 8.6 % (2.0-8.0); NEUTROPHILS % 44.8 % (36.0-66.0); PLATELET COUNT, AUTOMATED 711 10^3/uL (150-450); RED BLOOD COUNT 3.55 10^6/uL (4.30-6.10); WHITE BLOOD COUNT 11.2 10^3/uL (4.0-10.0)
[2022-05-25 04:41] LABS: EOS % 25.3 % (0.0-3.0)
[2022-05-25 04:50] LABS: CK-MB VALUE MASS < 1.0 NG/ML (<3.6); CPK CREATINE PHOSPHOKINASE 92 U/L (39-308); MB/CK RELATIVE INDEX 1.09 (< OR =4)
[2022-05-25 04:51] LABS: ALBUMIN 2.5 GM/DL (3.2-5.2); ALT/SGPT 38 U/L (12-78); BILIRUBIN,DIRECT < 0.1 MG/DL (0.0-0.2); BILIRUBIN,TOTAL 0.3 MG/DL (0.2-1.0); BLOOD UREA NITROGEN 9 MG/DL (7-18); CALCIUM LEVEL 8.5 MG/DL (8.5-10.1); CARBON DIOXIDE LEVEL 27 MEQ/L (21-32); CHLORIDE LEVEL 112 MEQ/L (98-107); CREATININE FOR GFR 0.84 MG/DL (0.70-1.30); GLOMERULAR FILTRATION RATE > 60.0 (>60); GLUCOSE, FASTING 97 MG/DL (70-100); POTASSIUM SERUM 4.5 MEQ/L (3.5-5.1); SODIUM LEVEL 143 MEQ/L (136-145); TOTAL PROTEIN 6.2 GM/DL (6.4-8.2)
== END 2022-05-25 05:30 | disposition left against medical advice (07) ==
LOC: M ED 02:12
DX: R06.00 Dyspnea, unspecified (principal); J90 Pleural effusion, not elsewhere classified; Z53.9 Procedure and treatment not carried out, unspecified reason; F17.200 Nicotine dependence, unspecified, uncomplicated; J44.9 Chronic obstructive pulmonary disease, unspecified; Z91.018 Allergy to other foods
CPT/HCPCS: 36600; 71045; 71275; 80048; 80076; 82550; 82553; 83605; 85025; 93005; 93041; 94760; 99285; Q9967

== ENCOUNTER → 2022-08-24 | Outpatient (REF) | payer OTHER | LOC: M SFHCPLAZ 17:02 | PROVIDERS: ATTEND Nurse Practitioner Family | DX: R19.8 Other specified symptoms and signs involving the digestive system and abdomen (principal) ==

== ENCOUNTER → 2022-09-03 | Outpatient (CLI) | payer OTHER ==
[2022-09-03 17:15] LABS: BASO # 0.1 10^3/uL (0.0-0.2); BASO % 1.7 % (0.0-1.0); EOS # 1.1 10^3/uL (0.0-0.5); HEMATOCRIT 37.6 % (42.0-52.0); HEMOGLOBIN 12.4 g/dl (13.5-17.5); LYMPH # 2.1 10^3/uL (1.5-5.0); MEAN CORPUSCULAR HEMOGLOBIN 29.7 pg (27.0-33.0); MEAN CORPUSCULAR VOLUME 90.2 fl (80.0-96.0); MONO # 0.6 10^3/uL (0.0-0.8); MONO % 8.4 % (2.0-8.0); NEUTROPHILS # 3.6 10^3/uL (1.5-8.5); NEUTROPHILS % 47.1 % (36.0-66.0); PLATELET COUNT, AUTOMATED 358 10^3/uL (150-450); RED BLOOD COUNT 4.17 10^6/uL (4.30-6.10); WHITE BLOOD COUNT 7.6 10^3/uL (4.0-10.0)
[2022-09-03 17:33] LABS: HEMOGLOBIN A1c 5.5 %
[2022-09-03 17:58] LABS: ALBUMIN 3.1 GM/DL (3.2-5.2); ALT/SGPT 13 U/L (12-78); BILIRUBIN,TOTAL 0.4 MG/DL (0.2-1.0); BLOOD UREA NITROGEN 5 MG/DL (7-18); CALCIUM LEVEL 8.8 MG/DL (8.5-10.1); CARBON DIOXIDE LEVEL 31 MEQ/L (21-32); CHLORIDE LEVEL 106 MEQ/L (98-107); CHOLESTEROL LEVEL 135 MG/DL (<200); CREATININE FOR GFR 0.95 MG/DL (0.70-1.30); FREE T4 0.94 NG/DL (0.76-1.46); GLOMERULAR FILTRATION RATE > 60.0 (>60); GLUCOSE, FASTING 102 MG/DL (70-100); HDL CHOLESTEROL 33 MG/DL (>40); LDL CHOLESTEROL 80 MG/DL (<100); LIPASE 160 U/L (73-393); NON-HDL-C 102 MG/DL; POTASSIUM SERUM 4.2 MEQ/L (3.5-5.1); SODIUM LEVEL 139 MEQ/L (136-145); THYROID STIMULATING HORMONE 0.643 uIU/ML (0.358-3.740); TOTAL PROTEIN 6.8 GM/DL (6.4-8.2); TRIGLYCERIDES LEVEL 111 MG/DL (<150)
[2022-09-03 18:19] LABS: VITAMIN B12 LEVEL 347 PG/ML (247-911)
== END ==
LOC: M PLALAB 15:48
PROVIDERS: ATTEND Nurse Practitioner Family
DX: F41.8 Other specified anxiety disorders (principal); Z13.1 Encounter for screening for diabetes mellitus; R42 Dizziness and giddiness; Z13.220 Encounter for screening for lipoid disorders

== ENCOUNTER → 2022-09-14 | Outpatient (CLI) | payer OTHER | LOC: M RAD 07:59 | PROVIDERS: ATTEND Nurse Practitioner Family | DX: J90 Pleural effusion, not elsewhere classified (principal) ==

== ENCOUNTER → 2022-09-17 | Outpatient (REF) | payer OTHER ==
[2022-09-17 19:38] LABS: GC DNA AMPLIFICATION NEGATIVE (NEGATIVE)
== END ==
LOC: M SFHCPLAZ 16:49
PROVIDERS: ATTEND Nurse Practitioner Family
DX: Z11.3 Encounter for screening for infections with a predominantly sexual mode of transmission (principal)

== ENCOUNTER → 2022-09-19 | Outpatient (CLI) | payer OTHER | LOC: M LAB 13:34 | PROVIDERS: ATTEND Nurse Practitioner Family | DX: Z11.3 Encounter for screening for infections with a predominantly sexual mode of transmission (principal) ==

== ENCOUNTER → 2022-09-21 | Outpatient (CLI) | payer OTHER ==
[2022-09-21 19:38] LABS: GC DNA AMPLIFICATION NEGATIVE (NEGATIVE); HEPATITIS B CORE ANTIBODY IGM NEGATIVE (NEGATIVE); HEPATITIS B SURFACE ANTIGEN NEGATIVE (NEGATIVE); HEPATITIS C VIRUS ABY INDEX 0.1 INDEX (<0.8); HIV 1&2 SCREEN CENTAUR NEGATIVE (NEGATIVE)
== END ==
LOC: M WUC 14:17
PROVIDERS: ATTEND Nurse Practitioner Family
DX: Z11.3 Encounter for screening for infections with a predominantly sexual mode of transmission (principal)

== ENCOUNTER → 2023-03-09 | Outpatient (REF) | LOC: M PLAIMG 09:58 | PROVIDERS: ATTEND Internal Medicine | DX: Z11.52 Encounter for screening for COVID-19 (principal) ==

== ENCOUNTER 2023-03-22 20:29 | Emergency (ER) | payer OTHER ==
[2023-03-22] MEDS ORDERED: HALOPERIDOL 5MG/ML 1ML VIAL IM STA (21:04)
[2023-03-22] MEDS ORDERED: LORazepam 2 MG/ML 1ML VIAL IM STA (21:04)
[2023-03-22] MEDS ORDERED: diphenhydrAMINE 50MG/ML VIAL IM ONE (21:05)
[2023-03-22 21:32] LABS: HEMATOCRIT 43.1 % (42.0-52.0); HEMOGLOBIN 14.8 g/dl (13.5-17.5); MEAN CORPUSCULAR HEMOGLOBIN 33.5 pg (27.0-33.0); MEAN CORPUSCULAR HGB CONC 34.3 g/dl (32.0-36.5); MEAN CORPUSCULAR VOLUME 97.5 fl (80.0-96.0); PLATELET COUNT, AUTOMATED 251 10^3/uL (150-450); RED BLOOD COUNT 4.42 10^6/uL (4.30-6.10); WHITE BLOOD COUNT 8.8 10^3/uL (4.0-10.0)
[2023-03-22 21:53] LABS: AMPHETAMINES LEVEL URINE NEGATIVE (NEGATIVE)
[2023-03-22 21:54] LABS: BARBITURATES URINE NEGATIVE (NEGATIVE); BENZODIAZEPINES URINE NEGATIVE (NEGATIVE); COCAINE METABOLITE URINE NEGATIVE (NEGATIVE); METHADONE URINE NEGATIVE (NEGATIVE); OPIATES URINE NEGATIVE (NEGATIVE); PHENCYCLIDINE URINE NEGATIVE (NEGATIVE)
[2023-03-22 21:57] LABS: CANNABINOIDS URINE POSITIVE (NEGATIVE)
[2023-03-22 21:57] LABS: ACETAMINOPHEN LEVEL < 2.0 UG/ML (10.0-20.0); SALICYLATE LEVEL < 3.0 MG/DL (<30)
[2023-03-22 22:21] LABS: ALBUMIN 4.2 G/DL (3.2-5.2); ALKALINE PHOSPHATASE 78 U/L (46-116); ALT/SGPT 122 U/L (7.0-40); AST/SGOT 150 U/L (<34); BILIRUBIN,DIRECT 0.2 MG/DL (<0.4); BILIRUBIN,TOTAL 0.3 MG/DL (0.3-1.2); CARBON DIOXIDE LEVEL 24 MMOL/L (20-31); CHLORIDE LEVEL 104 MMOL/L (98-107); CREATININE FOR GFR 0.67 MG/DL (0.70-1.30); GLOMERULAR FILTRATION RATE > 60.0 (>60); GLUCOSE, FASTING 83 MG/DL (60-100); POTASSIUM SERUM 4.1 MMOL/L (3.5-5.1); SODIUM LEVEL 138 MMOL/L (136-145); THYROID STIMULATING HORMONE 1.218 uIU/ML (0.55-4.78); TOTAL PROTEIN 7.8 G/DL (5.7-8.2)
[2023-03-22 22:22] LABS: BLOOD UREA NITROGEN < 5 MG/DL (9-23)
[2023-03-23 01:19] LABS: HEPATITIS B SURFACE ANTIGEN NEGATIVE (NEGATIVE)
[2023-03-23 01:40] LABS: HEPATITIS B CORE ANTIBODY IGM NEGATIVE (NEGATIVE)
[2023-03-23 15:54] VITALS: BP 154/73
== END 2023-03-23 16:17 | disposition home or self-care (01) ==
LOC: M ED 20:29
DX: F10.220 Alcohol dependence with intoxication, uncomplicated (principal); Z91.018 Allergy to other foods
CPT/HCPCS: 80048; 80076; 80143; 80307; 82077; 84443; 85027; 86705; 86709; 86803; 87340; 87635; 96372; 99285; J1200; J1630; J2060

== ENCOUNTER → 2024-09-19 | Outpatient (CLI) | payer OTHER, SELFPAY | LOC: M OUTALCOH 07:16 | PROVIDERS: ATTEND Psychiatry & Neurology Psychiatry | DX: F10.20 Alcohol dependence, uncomplicated (principal); F17.200 Nicotine dependence, unspecified, uncomplicated ==

== ENCOUNTER 2024-10-05 12:53 | Outpatient (RCR) | payer OTHER | END 2024-10-27 | LOC: M OUTALCOH 12:53 | PROVIDERS: ATTEND Psychiatry & Neurology Psychiatry | DX: F10.20 Alcohol dependence, uncomplicated (principal); F17.200 Nicotine dependence, unspecified, uncomplicated ==